=== PATIENT | male | born 1935 | race African-American/Black ===

== ENCOUNTER 2017-12-10 17:57 | Emergency (ER) | payer MEDICARE, OTHER ==
[~2017-12-10] VITALS: Ht 177.8 cm; Wt 95.3 kg
[2017-12-10 18:58] VITALS: BP 167/88
[2017-12-10 19:02] LABS: HEMATOCRIT 39.6 % (42.0-52.0); HEMOGLOBIN 13.4 G/DL (14.2-18.0); MEAN CORPUSCULAR VOLUME 90 FL (80-99); PLATELET COUNT 194 K/UL (150-450); RED BLOOD COUNT 4.43 M/UL (4.70-6.10); RED CELL DISTRIBUTION WIDTH 11.6 % (11.6-14.8); WHITE BLOOD COUNT 2.7 K/UL (4.8-10.8)
[2017-12-10 19:15] LABS: INR 1.1 (0.9-1.1)
[2017-12-10 19:18] LABS: ANION GAP 9 mmol/L (5-15); BLOOD UREA NITROGEN 34 mg/dL (7-18); CALCIUM 8.9 MG/DL (8.5-10.1); CARBON DIOXIDE 27 MMOL/L (21-32); CHLORIDE 106 MMOL/L (98-107); CREATININE 1.7 MG/DL (0.55-1.30); POTASSIUM 4.3 MMOL/L (3.5-5.1); SODIUM 142 MMOL/L (136-145)
[2017-12-10 19:22] LABS: ALANINE AMINOTRANSFERASE 15 U/L (12-78); ALBUMIN 3.2 G/DL (3.4-5.0); ALBUMIN/GLOBULIN RATIO 0.8 (1.0-2.7); ALKALINE PHOSPHATASE 82 U/L (46-116); ASPARTATE AMINO TRANSFERASE 13 U/L (15-37); BILIRUBIN,TOTAL 0.3 MG/DL (0.2-1.0)
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
[2017-12-10 21:16] VITALS: BP 164/82
--- NOTE | 2017-12-11 13:48 | Diagnostic Imaging Report ---
Indications: Right hip pain Findings: Two views of the right hip were obtained. No fracture or malalignment identified. There is narrowing and osteophyte formation involving the tip joint. There is mild enthesophyte formation along the ischial tuberosity. IMPRESSION: No acute injury appreciated
== END 2017-12-10 21:16 | disposition home or self-care (01) ==
LOC: EDBD 17:57 → EMR 18:35
DX: S80.02XA Contusion of left knee, initial encounter (principal); S80.01XA Contusion of right knee, initial encounter; V03.10XA Pedestrian on foot injured in collision with car, pick-up truck or van in traffic accident, initial encounter; Y93.89 Activity, other specified; Y92.488 Other paved roadways as the place of occurrence of the external cause
CPT/HCPCS: 36415; 80053; 85007; 85025; 85610; 85730; 99283